=== PATIENT | male | born 1945 | race Caucasian/White ===

== ENCOUNTER 2018-02-27 07:12 | Inpatient (IN) | payer MEDICARE, BC ==
[~2018-02-27] VITALS: Ht 165.1 cm; Wt 86.4 kg
[2018-02-27 07:31] LABS: BASOPHILS # (AUTO) 0.05 x10^3/uL (0-0.1); BASOPHILS % (AUTO) 0 % (0-1); EOSINOPHILS # (AUTO) 0.22 x10^3/uL (0-0.4); EOSINOPHILS % (AUTO) 2 % (1-7); LYMPHOCYTES # (AUTO) 3.11 x10^3/uL (1-3.4); LYMPHOCYTES % (AUTO) 27 % (22-44); MD NO; MEAN CORPUSCULAR HEMOGLOBIN 29.5 pg (27.5-34.5); MEAN CORPUSCULAR HGB CONC 33.3 g/dL (33.2-36.2); MEAN CORPUSCULAR VOLUME 88.6 fL (81-97); MEAN PLATELET VOLUME 7.5 fL (7.4-10.4); MONOCYTES # (AUTO) 0.71 x10^3/uL (0.2-0.8); MONOCYTES % (AUTO) 6 % (2-9); NEUTROPHILS # (AUTO) 7.43 x10^3/uL (1.8-6.8); NEUTROPHILS % (AUTO) 65 % (42-75); PLATELET COUNT 271 x10^3/uL (130-400); RED BLOOD COUNT 5.33 x10^6/uL (4.38-5.82); RED CELL DISTRIBUTION WIDTH 14.6 % (9.4-14.8)
[2018-02-27 07:44] LABS: ALBUMIN 3.9 g/dL (3.4-5.0); ANION GAP 8 mmol/L (5-15); CHLORIDE 108 mmol/L (98-107); CREATININE 0.95 mg/dL (0.7-1.3)
[2018-02-27 07:47] LABS: TROPONIN I 0.041 ng/mL (0.000-0.045)
[2018-02-27] MEDS ORDERED: atorvastatin (08:22)
[2018-02-27] MEDS ORDERED: losartan (08:22)
[2018-02-27] MEDS ORDERED: metformin (08:22)
[2018-02-27] MEDS ORDERED: LEVOTHYROXINE (08:22)
[2018-02-27] MEDS ORDERED: ONDANSETRON 2MG/ML, 2ML IVPush PRN (11:00)
[2018-02-27 12:04] VITALS: BP 136/78
[2018-02-27 12:04] LABS: HEMOGLOBIN A1C 6.9 % (4.2-6.3)
[2018-02-27] MEDS: SODIUM CHLORIDE 0.9% 1,000 ML IV SCH (13:48)
[2018-02-27] MEDS ORDERED: BUPIVACAINE/PF 0.25% ONE (14:08)
[2018-02-27] MEDS ORDERED: COCAINE TOPICAL SOLN 4%, 4ML ONE (14:08)
[2018-02-27] MEDS ORDERED: BACITRACIN OINT 500U/GM, 15 GM ONE (14:08)
[2018-02-27] MEDS ORDERED: THROMBIN 5,000 UNIT VIAL TP ONE (14:08)
[2018-02-27] MEDS ORDERED: OXYMETAZOLINE NASAL SPRAY 0.05%, 15ML ONE (14:09)
[2018-02-27] MEDS ORDERED: EPINEPHRINE 1 MG/ML, 1ML ONE (14:09)
[2018-02-27] MEDS ORDERED: FENTANYL PF 100 MCG/2ML ONE ×2 (14:20→15:43)
[2018-02-27] MEDS ORDERED: PROPOFOL 10 MG/ML, 20ML ONE (14:26)
[2018-02-27] MEDS ORDERED: GLYCOPYRROLATE 0.2MG/1ML, 5ML ONE (14:26)
[2018-02-27] MEDS ORDERED: SUCCINYLCHOLINE 20 MG/ML, 10ML ONE (14:26)
[2018-02-27] MEDS ORDERED: NEOSTIGMINE 1 MG/ML, 10ML ONE (14:26)
[2018-02-27] MEDS ORDERED: hydrALAzine 20 MG/ML, 1ML ONE (14:26)
[2018-02-27] MEDS ORDERED: ONDANSETRON 2MG/ML, 2ML ONE (14:26)
[2018-02-27] MEDS ORDERED: ROCURONIUM 10 MG/ML,10ML ONE (14:26)
[2018-02-27] MEDS ORDERED: DEXAMETHASONE 4 MG/ML, 1ML ONE (14:26)
[2018-02-27] MEDS ORDERED: FENTANYL PF 250 MCG/5ML ONE (14:55)
[2018-02-27] MEDS ORDERED: BALANCED SALT OPHTH IRRIG SOLN 18ML ONE (15:12)
[2018-02-27] MEDS ORDERED: ACETAMINOPHEN 325 MG TABLET ONE (15:43)
[2018-02-27] MEDS ORDERED: OXYcodone 5 MG/5 ML ORAL.SOL UDC ONE (15:43)
[2018-02-27] MEDS: FENTANYL PF 100 MCG/2ML IV PRN ×3 (15:48→16:10)
[2018-02-27] MEDS ORDERED: OXYcodone 5 MG/5 ML ORAL.SOL UDC PO PRN (16:00)
[2018-02-27] MEDS ORDERED: MORPHINE SULFATE 4 MG/ML, 1ML IVPush PRN (16:00)
[2018-02-27] MEDS ORDERED: PROMETHAZINE 25 MG/ML, 1ML IV PRN (16:00)
[2018-02-27] MEDS ORDERED: ACETAMINOPHEN 325 MG TABLET PO PRN (16:00)
[2018-02-27 16:30] VITALS: BP 151/83
[2018-02-27] MEDS: INSULIN LISPRO 100 UNITS/ML, PEN SQ-INSULIN SCH ×2 (17:55→21:00)
[2018-02-27 18:43] LABS: INTERNATIONAL NORMALIZED RATIO 1.03 (0.93-1.1); PROTHROMBIN TIME 10.6 Seconds (9.6-11.5)
[2018-02-27 19:14] VITALS: BP 143/86
[2018-02-27 19:18] LABS: BASOPHILS # (AUTO) 0.03 x10^3/uL (0-0.1); BASOPHILS % (AUTO) 0 % (0-1); EOSINOPHILS # (AUTO) 0.01 x10^3/uL (0-0.4); EOSINOPHILS % (AUTO) 0 % (1-7); LYMPHOCYTES # (AUTO) 0.94 x10^3/uL (1-3.4); LYMPHOCYTES % (AUTO) 6 % (22-44); MD SCAN; MEAN CORPUSCULAR HEMOGLOBIN 29.2 pg (27.5-34.5); MEAN CORPUSCULAR HGB CONC 33.2 g/dL (33.2-36.2); MEAN PLATELET VOLUME 8.1 fL (7.4-10.4); MONOCYTES # (AUTO) 0.12 x10^3/uL (0.2-0.8); MONOCYTES % (AUTO) 1 % (2-9); NEUTROPHILS % (AUTO) 93 % (42-75); PLATELET COUNT 264 x10^3/uL (130-400); RED BLOOD COUNT 5.05 x10^6/uL (4.38-5.82); RED CELL DISTRIBUTION WIDTH 14.6 % (9.4-14.8)
[2018-02-28 01:16] VITALS: BP 127/74
[2018-02-28 05:47] LABS: MEAN CORPUSCULAR HEMOGLOBIN 29.3 pg (27.5-34.5); MEAN CORPUSCULAR HGB CONC 32.8 g/dL (33.2-36.2); MEAN CORPUSCULAR VOLUME 89.2 fL (81-97); MEAN PLATELET VOLUME 7.9 fL (7.4-10.4); PLATELET COUNT 260 x10^3/uL (130-400); RED BLOOD COUNT 4.79 x10^6/uL (4.38-5.82); RED CELL DISTRIBUTION WIDTH 14.6 % (9.4-14.8)
[2018-02-28 05:50] LABS: ALBUMIN 3.3 g/dL (3.4-5.0); ANION GAP 9 mmol/L (5-15); CALCIUM 7.8 mg/dL (8.5-10.1); CHLORIDE 104 mmol/L (98-107)
[2018-02-28 05:52] LABS: ALANINE AMINOTRANSFERASE 42 U/L (12-78); ALKALINE PHOSPHATASE 63 U/L (45-117); BILIRUBIN,TOTAL 0.6 mg/dL (0.2-1.0); CREATININE 0.83 mg/dL (0.7-1.3); TOTAL PROTEIN 7.1 g/dL (6.4-8.2)
[2018-02-28] MEDS: SODIUM CHLORIDE 0.9% 1,000 ML IV SCH ×2 (06:11→16:27)
[2018-02-28 06:28] LABS: BASOPHILS # (AUTO) 0.02 x10^3/uL (0-0.1); BASOPHILS % (AUTO) 0 % (0-1); EOSINOPHILS # (AUTO) 0.03 x10^3/uL (0-0.4); EOSINOPHILS % (AUTO) 0 % (1-7); LYMPHOCYTES # (AUTO) 2.29 x10^3/uL (1-3.4); LYMPHOCYTES % (AUTO) 15 % (22-44); MD SCAN; MONOCYTES # (AUTO) 1.51 x10^3/uL (0.2-0.8); MONOCYTES % (AUTO) 10 % (2-9); NEUTROPHILS # (AUTO) 11.59 x10^3/uL (1.8-6.8); NEUTROPHILS % (AUTO) 75 % (42-75)
[2018-02-28] MEDS: INSULIN LISPRO 100 UNITS/ML, PEN SQ-INSULIN SCH ×4 (07:00→20:54)
[2018-02-28 07:54] VITALS: BP 138/77
[2018-02-28 13:05] VITALS: BP 144/78
[2018-02-28 19:50] VITALS: BP 142/84
[2018-03-01 02:12] VITALS: BP 150/64
[2018-03-01] MEDS: SODIUM CHLORIDE 0.9% 1,000 ML IV SCH (06:16)
[2018-03-01] MEDS: INSULIN LISPRO 100 UNITS/ML, PEN SQ-INSULIN SCH ×2 (07:00→10:59)
[2018-03-01 08:31] VITALS: BP 153/90
[2018-03-01 14:04] VITALS: BP 148/81
== END 2018-03-01 18:58 | disposition home or self-care (01) | DRG 982 ==
LOC: ED 07:35 → EDIP 09:40 → 3NW 11:05
PROVIDERS: ADMIT Internal Medicine; ATTEND Internal Medicine
PROC: 2Y41X5Z Packing of Nasal Region using Packing Material (ICD-10-PCS; 2018-02-27)
PROC: 0W3Q8ZZ Control Bleeding in Respiratory Tract, Via Natural or Artificial Opening Endoscopic (ICD-10-PCS; 2018-02-27)
PROC: 09BN8ZX Excision of Nasopharynx, Via Natural or Artificial Opening Endoscopic, Diagnostic (ICD-10-PCS; principal; 2018-02-27 14:00)
DX: J33.8 Other polyp of sinus (principal); J98.11 Atelectasis; R04.0 Epistaxis; E03.9 Hypothyroidism, unspecified; E11.9 Type 2 diabetes mellitus without complications; E78.5 Hyperlipidemia, unspecified; D72.829 Elevated white blood cell count, unspecified; H92.23 Otorrhagia, bilateral; H40.9 Unspecified glaucoma; M19.90 Unspecified osteoarthritis, unspecified site; Z79.84 Long term (current) use of oral hypoglycemic drugs; Z83.3 Family history of diabetes mellitus
CPT/HCPCS: 36415; 71045; 80048; 80053; 82040; 82962; 83036; 84484; 85025; 85610; 85730; 88305; 93005; J0171; J1100; J2405; J2704; J2710; J3010; J3490; J0330; J0360; J1815; J7030